=== PATIENT | male | born 1970 | race Caucasian/White ===

== ENCOUNTER → 2022-08-06 | Outpatient (CLI) | payer BC, SELFPAY ==
[2022-08-06] VITALS (10 sets, daily range): BP systolic 53–113; BP diastolic 10–72; PULSE 76–94; RESP 14–19; TEMP 36.8; O2SAT 98–100; BMI 20.9
--- NOTE | 2022-08-06 | BMB_PTH ---
PATIENT: MALDONADO HOGUE LOC: CT U#:[id number] AGE/SX: 51/M ROOM: RE08/06/[address]: Dr. Rafat Thapa MD : 1970 BED: DIS: 08/06/2022 SPEC #: [id number] RECD: 08/06/22 10:40 STATUS: LEIGH ANN REVirgilio #: [id number] QASIM: 08/06/22 00:[address]: Rafat Thapa DEPT: BONE MARROW RECD BY: Adriana Strong ENTERED: 08/06/22 10:40 SP TYPE: BMB CHARLI DR: Anu House, METHODS ANALYST-C Tissues: A - Bone marrow, NOS B - Bone marrow, NOS C - Bone marrow, NOS Procedures: Bone Marrow Aspiration Bone Marrow Core Biopsy Iron Stain Bone Marrow HEADER OPERATION: Bone marrow biopsy and aspiration PRE-OP DIAGNOSIS: Pancytopenia TISSUE SUBMITTED: A - Core, B - Clot, C - Smears, and send outs (flow, cytogenetics and FISH) BONE MARROW DIAGNOSIS Bone marrow core, clot and aspirate smears: 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 See comment. SJ:lia 08/08/2022 COMMENT A & B. Please also refer to Immunohistochemistry report ([id number]). Flow cytometry studies from [facility] show acute myeloid leukemia (non-APL). Leukemia-associated immunophenotype (LAIP): blasts show aberrant expression of CD34 (negative), CD33 (bright) and HLADR (partially negative). Blasts (30%) are positive for CD117, HLA-DR (partial expression), CD11c (dim), CD13, CD33 (bright expression) and CD38. The complete flow cytometry report is viewable in patient?s EMR. This case is discussed with Dr. Thapa on 08/08/2022. Case has been reviewed in consultation with Dr. Olivo who concurs with the above diagnosis. IDC:AM BONE MARROW STUDY Slides are reviewed. CBC DATE: 08/06/22 WBC 5.1; RBC 3.01; HGB 9.5; HCT 28.6; MCV 95.0; RDW 13.7; PLTS 55,000 SEGS 28.6%; LYMPHS 52.0%; MONOS 15.6%; EOS 0.6%; BASOS 0.6%, IG 2.6% PERIPHERAL SMEAR: Submitted. RBC: Macrocytic anemia. Nucleated RBCs are noted. Polychromasia 1+, Anisocytosis 1+, target cells 1+, ovalocytes and helmet cells and fragmented RBCs rare. WBC: Neutropenia. A few immature cells consistent with blasts are noted. The WBC count is compatible to as reported above. PLTS: Markedly decreased. BONE MARROW ASPIRATE DIFFERENTIAL: 200 cell count. Blasts % (normal 0-2): 40 Promyelocytes % (normal 1-5): 5 Myelocytes and metamyelocytes % (normal 17-41): 4 Bands and Segs % (normal 15-32): 0 Eos % (normal 1-6): 7 Basos % (normal 0-1): 0 Monocytes % (normal 0-4): 16 Erythroid Precursors % (normal 17-35): 21 Lymphocytes % (normal 7-13): 7 Plasma Cells % (normal 0-2): 0 ASPIRATE FINDINGS: Site: Not specified Paucispicular, Cellular M/E ratio: 0.4 (Normal 1.5-4.0) Megakaryocytes: Present and normal morphology. Erythropoiesis: Normoblastic. Granulopoiesis: Marled left shift. Bands and segmented neutrophils are not seen. Numerous immature cells consistent with blasts are noted. A few eosinophils are noted. CORE BIOPSY FINDINGS: Site: Not specified Adequacy: Adequate Cellularity: 95-100% M/E ratio: See comment below. Megakaryocytes: Present and adequate in number. Bony trabeculae: Not seen. Granulomas: Absent. Lymphoid aggregate: Absent. Atypical infiltrate: Present. Comment: Marked increased number of immature cells consistent with blasts are noted. Mature neutrophils are not seen. Please also refer to immunohistochemistry report ([id number]). ASPIRATE CLOT FINDINGS: Site: Not specified Marrow particles: Numerous Cellularity: 95-100% M/E ratio: See comment below. Megakaryocytes: Present and adequate in number. Granulomas: Absent. Lymphoid aggregates: Absent. Atypical infiltrates: Present. Comment: Marked increased number of immature cells consistent with blasts are noted. Mature neutrophils are not seen. Please also refer to immunohistochemistry report ([id number]). SPECIAL STAINS WITH MATCHED CONTROLS: Iron: Traces. Atypical or ring sideroblasts are not seen. Reticulin: Mild increase of reticulin fibers is noted. PAS: Highlights myeloid cells and megakaryocytes. BONE MARROW GROSS A - Received is a container labeled with the patient's name and designated bone marrow. The specimen consists of a scant amount of soft tissue. The specimen is totally submitted for cell block preparation in one cassette. B - Received labeled with the patient's name and designated bone marrow is a specimen that consists of approximately 6 ml of bloody fluid that on filtration yields multiple minute fragments of blood clots measuring in aggregate 2.4 x 1.5 x 0.1 cm. The specimen is totally submitted in one cassette. C - Also received are 17 unstained and 1 peripheral stained slides. The unstained slides are submitted for appropriate staining. Also received is one green top tube which is sent to our reference lab for flow, cytogenetics and FISH. / SJ:rg 08/06/2022 TC:0 CPT: 40727, 83853, 05041 x2, 16034 x3 ADDENDUM ADDENDUM ADDENDUM ADDENDUM ADDENDUM ADDENDUM ADDENDUM ADDENDUM ADDENDUM ADDENDUM ADDENDUM ADDENDUM ADDENDUM ADDENDUM ADDENDUM ADDENDUM ADDENDUM ADDENDUM ADDENDUM ADDENDUM ADDENDUM ADDENDUM ADDENDUM ADDENDUM ADDENDUM ADDENDUM ADDENDUM ADDENDUM ADDENDUM ADDENDUM ADDENDUM ADDENDUM ADDENDUM ADDENDUM ADDENDUM ADDENDUM ADDENDUM ADDENDUM ADDENDUM ADDENDUM 08/14/2022 10:45 ADDENDUM 08/14/2022 10:45 ADDENDUM 08/14/2022 10:45 ADDENDUM 08/14/2022 10:45 ADDENDUM 08/14/2022 10:45 CYTOGENETICS REPORT FROM [facility] INTERPRETATION: A normal male chromosome complement was observed in twenty metaphases analyzed. 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 NGS may underestimate mutant:wild type allelic ratios, and orthogonal PCR testing has therefore been initiated for further characterization; subsequent report addendum with mutant:wild type allelic ratio to follow. PERTINENT NEGATIVE RESULTS: The following genes are NEGATIVE for clinically relevant mutations. Mutational hotspots and surrounding exonic regions were interrogated for DNA level point mutations and indels (fusions not assayed). ABL1, ANKRD26, ASXL1, ATRX, BCOR, BCORL1, BRAF, CALR, CBL, CCND2, CDKN2A, CEBPA, CSF3R, CUX1, DDX41, DNMT3A, ETNK1, ETV6, EZH2, FBXW7, GATA2, HRAS, IDH1, IDH2, JAK2, KDM6A, KIT, KMT2A, KRAS, MAP2K1, MPL, MYD88, NF1, NRAS, PDGFRA, PHF6, PTEN, PTPN11, RUNX1, SETBP1, SF3B1, SRSF2, STAG2, TET2, TP53, U2AF1, WT1, ZRSR2 FLUORESCENCE IN-SITU HYBRIDIZATION (FISH) FROM [facility] MDS-Related Diseases & Other INTERPRETATION: 1. No evidence of deletion of 5q or monosomy 5. 2. No evidence of monosomy 7 or deletion of 7q. 3. No evidence of trisomy 8 (+8). 4. No evidence of deletion of 20q12. 5. No evidence of BCR/ABL rearrangement. 6. No evidence of PML/KEITH gene rearrangement. 7. No evidence of RUNX1/FKAO0J0 [t(8;21)]. 8. No evidence of MLL gene locus 11q23 translocation. 9. No evidence of CBFB [inversion(16) or translocation t(16;16)] gene rearrangement. Please see complete report in e-chart or EMR
--- NOTE | 2022-08-06 | IMM_PTH ---
PATIENT: MALDONADO HOGUE LOC: CT U#:[id number] AGE/SX: 51/M ROOM: RE08/06/[address]: Dr. Rafat Thapa MD : 1970 BED: DIS: 08/06/2022 SPEC #: [id number] RECD: 08/07/22 13:12 STATUS: LEIGH ANN REQ #: [id number] QASIM: 08/06/22 00:[address]: Rafat Thapa DEPT: IMMUNOHISTOCHEMISTRY RECD BY: Yahaira Olivares ENTERED: 08/07/22 13:13 SP TYPE: IMMUNO OTHR DR: Anu House, PRINTING PRESS MACHINIST-C Tissues: A - Bone marrow of iliac crest B - Bone marrow of iliac crest Procedures: CD45 (add) CD34 (initial) PHYSICIAN & INSTITUTION [place] [id number] SPECIMEN INFORMATION: Tissue Source: A ? Bone marrow core, B ? Bone marrow clot Clinical Info: Pancytopenia Specimen Number: [id number] A & B CPT code: 96471 x2, 14587 x2 METHODOLOGY: Deparaffinized sections of prefer/formalin-fixed tissue or PAP/DQ stained slides are incubated with monoclonal/polyclonal antibodies/oligonucleotide probes. Localization is made via biotin free immunoperoxidase method. Appropriate controls are performed and reacted as expected. Results on target cell population are indicated in the following table: RESULTS: ANTIBODY / CLONE RESULT Block A CD34 (QBEnd-10) negative CD45 (RP2/18) positive Block B CD34 (QBEnd-10) negative CD45 (RP2/18) positive These tests were developed and their performance characteristics determined by [facility]. They may not have been cleared or approved by the U.S. Food and Drug Administration. The FDA has determined that such clearance or approval is not necessary. The above immunohistochemical/dualISH markers are ordered and reviewed by the Pathologist. INTERPRETATION: A. Bone marrow core: Increased number of CD34 negative blasts are noted consistent with acute leukemia. B. Bone marrow clot: Increased number of CD34 negative blasts are noted consistent with acute leukemia. SJ:lia 08/08/2022 Case has been reviewed in consultation with Dr. Olivo who concurs with the above diagnosis. IDC:OPAL
--- NOTE | 2022-08-06 08:51 | CT_ITS ---
PROCEDURE: CT GUIDED bone marrow biopsy and bone marrow aspiration DATE: August 06, 2022 INDICATION: Male, 51 years old. Pancytopenia. PHYSICIAN: Alexander Nova M.D. RADIATION DOSAGE (If Supplied By Facility): CTDIvol = ( 14.5 ) mGy, DLP = ( 245.83 ) mGycm. Individualized dose optimization techniques were utilized. PROCEDURE: The risks, benefits, and alternatives to the procedure were explained to the patient. The specific risk of hemorrhage requiring further treatment or intervention was detailed and accepted. Follow-up instructions were discussed with the patient as well. Written informed consent was obtained. The patient was brought into the CT suite and placed in the prone position. . An appropriate entry site was identified. The overlying skin was prepped and draped in the usual sterile fashion. 1% lidocaine was administered subcutaneously for local anesthesia. Conscious sedation was performed. The patient received 2 mg of Versed and 50 mcg of fentanyl intravenously. Conscious sedation was started at 9:54 AM and terminated at 10:15 AM. The patient was independently monitored by the department nurse. Under CT guidance, a bone marrow biopsy and aspiration of the posterior right iliac bone were performed The specimens were then placed in the appropriate fluid and transported to the laboratory for analysis. Hemostasis was obtained. The patient tolerated the procedure well without immediate complications. CT/Biopsy/Inj or Needle Placement IMPRESSION: Successful CT guided bone marrow biopsy and aspiration of the posterior right iliac bone, as described above. Conscious sedation protocol was followed. Electronically Signed: Alexander Nova MD at 10:31 EST ,
[2022-08-06 08:57] LABS: Absolute Lymphocyte Count 2.64 X10^3/uL (0.83-4.51); Absolute Neutrophil Count 1.5 X10^3/uL (2.0-7.7); Basophil# 0.03 X10^3/uL; Basophil% 0.6 % (0-1); Eosinophil# 0.03 X10^3/uL; Eosinophils% 0.6 % (0-5); Hematocrit 28.6 % (40-54); Hemoglobin 9.5 g/dL (13.0-16.5); Lymphocyte # 2.64 X10^3/ul (0.83-4.51); Mean Corp Hgb Conc 33.2 g/dL (32-36); Mean Corpuscular Hgb 31.6 pg (27.0-32.0); Monocyte# 0.79 X10^3/uL; Monocyte% 15.6 % (0-10); NRBC Flagged by Analyzer 7.9 % (0-5); Neutrophil # 1.46 X10^3/uL (2.7-7.7); Neutrophil % 28.6 % (47-70); POSITIVE COUNT YES; POSITIVE MORPHOLOGY YES; Platelet Count 55 K/mm3 (150-450); RBC Distribution Width CV 13.7 % (11.6-14.6); RBC Distribution Width SD 47.5 fl (35.1-43.9); Red Blood Count 3.01 M/mm3 (4.6-6.2); White Blood Count 5.1 K/mm3 (4.4-11.0)
[2022-08-06 08:58] LABS: Differential Indicated SCAN CRITERIA MET
[2022-08-06 09:04] LABS: International Normalized Ratio 1.1; Partial Thromboplast Time 27.6 Seconds (24.1-36.2); Prothrombin Time (Protime)PT. 14.4 SECONDS (11.7-14.9)
[2022-08-06 09:22] LABS: Atypical Lymphocyte 1+ %
[2022-08-06 09:23] LABS: Differential Comment SCANNED
[2022-08-06] MEDS: 0.9% Saline Lock 10 ML Syringe IV (09:26)
[2022-08-06] MEDS: Midazolam 2 MG/2 ML Syringe IV (09:54)
[2022-08-06] MEDS: fentaNYL 100 MCG/2 ML Ampul IV (09:55)
[2022-08-06] MEDS: Lidocaine 2% (20 ml mdv) 20 ML Vial INFILT (10:00)
[2022-08-07 11:39] LABS: Pathologist Review Reviewed
== END | disposition home or self-care (01) ==
LOC: CT 08:40
PROVIDERS: PCP Nurse Practitioner Family; Visit Provider Internal Medicine Medical Oncology
DX: D61.818 Other pancytopenia (principal); N50.89 Other specified disorders of the male genital organs; F17.210 Nicotine dependence, cigarettes, uncomplicated; Z79.899 Other long term (current) drug therapy; E61.1 Iron deficiency
CPT/HCPCS: 38222; 36415; 77012; 85025; 85610; 85730; 88305; 88311; 88313; 88341; 88342; 99156; J7050; A4216

== ENCOUNTER 2022-09-23 10:53 | Outpatient (CLI) | payer BC, SELFPAY ==
[2022-09-23 11:28] LABS: Absolute Lymphocyte Count 0.64 X10^3/uL (0.83-4.51); Absolute Neutrophil Count 1.2 X10^3/uL (2.0-7.7); Hematocrit 33.3 % (40-54); Hemoglobin 10.8 g/dL (13.0-16.5); Lymphocyte # 0.64 X10^3/ul (0.83-4.51); Lymphocyte % 31.4 % (19-41); Mean Corp Hgb Conc 32.4 g/dL (32-36); Mean Corpuscular Hgb 29.8 pg (27.0-32.0); Mean Platelet Vol. 9.5 fl (6.2-12.0); Monocyte# 0.16 X10^3/uL; Monocyte% 7.8 % (0-10); NRBC Flagged by Analyzer 0 % (0-5); Neutrophil # 1.23 X10^3/uL (2.7-7.7); Neutrophil % 60.3 % (47-70); Platelet Count 177 K/mm3 (150-450); RBC Distribution Width SD 44.3 fl (35.1-43.9); Red Blood Count 3.62 M/mm3 (4.6-6.2)
[2022-09-23 11:43] LABS: AST(SGOT) 48 U/L (15-37); Alanine Aminotransfer ALT/SGPT 153 U/L (16-61); Albumin, Serum 2.5 g/dL (3.2-5.0); Alkaline Phosphatase 129 U/L (45-117); Anion Gap 2 (5-15); BUN 7 mg/dL (7-18); BUN/Creat Ratio 9.8 RATIO (10-20); Bilirubin, Direct 0.13 mg/dL (0.00-0.30); Calcium,Total 8.4 mg/dL (8.5-10.1); Chloride 111 mmol/L (98-107); Creatinine, Serum 0.71 mg/dL (0.70-1.30); EST Glomerular Filtration Rate 123 mL/min (>60); Est Glom Filt Rate - Afr Amer 148 mL/min (>60); Globulin 3.9 g/dL (2.2-4.2); Glucose 100 mg/dL (74-106); Potassium 3.9 mmol/L (3.5-5.1); Protein, Total 6.4 g/dL (6.4-8.2); Sodium Level 138 mmol/L (136-145)
[2022-09-23 19:22] LABS: Xtra Tube EP Lab EXTRA TUBE
== END 2022-09-23 10:54 | disposition home or self-care (01) ==
LOC: MEDOUTP 10:54
PROVIDERS: PCP Nurse Practitioner Family; Referring Provider Nurse Practitioner Adult Health; Visit Provider Nurse Practitioner Adult Health
DX: Z45.2 Encounter for adjustment and management of vascular access device (principal); C92.00 Acute myeloblastic leukemia, not having achieved remission
CPT/HCPCS: 36592; 80048; 80076; 85025; A4216

== ENCOUNTER 2022-09-30 14:30 | Outpatient (CLI) | payer BC, SELFPAY ==
[2022-09-30 15:40] LABS: Absolute Lymphocyte Count 1.19 X10^3/uL (0.83-4.51); Absolute Neutrophil Count 1.6 X10^3/uL (2.0-7.7); Basophil# 0.03 X10^3/uL; Basophil% 0.7 % (0-1); Hematocrit 35.3 % (40-54); Hemoglobin 11.2 g/dL (13.0-16.5); Lymphocyte # 1.19 X10^3/ul (0.83-4.51); Lymphocyte % 29.4 % (19-41); Mean Corp Hgb Conc 31.7 g/dL (32-36); Mean Corpuscular Hgb 29.7 pg (27.0-32.0); Mean Corpuscular Volume 93.6 fL (80-94); Mean Platelet Vol. 8.6 fl (6.2-12.0); Monocyte% 29.6 % (0-10); NRBC Flagged by Analyzer 0 % (0-5); Neutrophil # 1.62 X10^3/uL (2.7-7.7); Neutrophil % 40.1 % (47-70); Platelet Count 383 K/mm3 (150-450); RBC Distribution Width SD 46.3 fl (35.1-43.9); Red Blood Count 3.77 M/mm3 (4.6-6.2); White Blood Count 4.1 K/mm3 (4.4-11.0)
[2022-09-30 16:08] LABS: AST(SGOT) 48 U/L (15-37); Alanine Aminotransfer ALT/SGPT 116 U/L (16-61); Alkaline Phosphatase 125 U/L (45-117); Anion Gap 8 (5-15); BUN 7 mg/dL (7-18); BUN/Creat Ratio 9.1 RATIO (10-20); Bilirubin, Direct 0.12 mg/dL (0.00-0.30); Calcium,Total 8.5 mg/dL (8.5-10.1); Chloride 108 mmol/L (98-107); Creatinine, Serum 0.77 mg/dL (0.70-1.30); EST Glomerular Filtration Rate 112 mL/min (>60); Est Glom Filt Rate - Afr Amer 136 mL/min (>60); Globulin 4.1 g/dL (2.2-4.2); Glucose 89 mg/dL (74-106); Potassium 3.9 mmol/L (3.5-5.1); Protein, Total 7.1 g/dL (6.4-8.2); Sodium Level 141 mmol/L (136-145)
== END 2022-09-30 14:31 | disposition home or self-care (01) ==
LOC: MEDOUTP 14:30
PROVIDERS: PCP Nurse Practitioner Family; Referring Provider Nurse Practitioner Adult Health; Visit Provider Nurse Practitioner Adult Health
DX: C92.00 Acute myeloblastic leukemia, not having achieved remission (principal)
CPT/HCPCS: 36415; 80048; 80076; 85025; A4216

== ENCOUNTER 2022-10-14 14:37 | Outpatient (CLI) | payer BC, SELFPAY ==
[2022-10-14 15:11] LABS: Absolute Lymphocyte Count 1.01 X10^3/uL (0.83-4.51); Absolute Neutrophil Count 3.1 X10^3/uL (2.0-7.7); Basophil# 0.01 X10^3/uL; Basophil% 0.2 % (0-1); Hematocrit 35.5 % (40-54); Hemoglobin 11.7 g/dL (13.0-16.5); Lymphocyte # 1.01 X10^3/ul (0.83-4.51); Lymphocyte % 24.3 % (19-41); Monocyte# 0.02 X10^3/uL; Monocyte% 0.5 % (0-10); NRBC Flagged by Analyzer 0 % (0-5); Neutrophil # 3.09 X10^3/uL (2.7-7.7); Neutrophil % 74.5 % (47-70); POSITIVE COUNT YES; Platelet Count 84 K/mm3 (150-450); RBC Distribution Width CV 14.5 % (11.6-14.6); White Blood Count 4.2 K/mm3 (4.4-11.0)
[2022-10-14 15:12] LABS: Differential Indicated SCAN CRITERIA MET
[2022-10-14 15:25] LABS: AST(SGOT) 29 U/L (15-37); Alanine Aminotransfer ALT/SGPT 95 U/L (16-61); Albumin, Serum 3.4 g/dL (3.2-5.0); Alkaline Phosphatase 88 U/L (45-117); Anion Gap 10 (5-15); BUN 17 mg/dL (7-18); BUN/Creat Ratio 19.8 RATIO (10-20); Bilirubin, Direct 0.24 mg/dL (0.00-0.30); Calcium,Total 8.5 mg/dL (8.5-10.1); Chloride 103 mmol/L (98-107); Creatinine, Serum 0.86 mg/dL (0.70-1.30); EST Glomerular Filtration Rate 99 mL/min (>60); Est Glom Filt Rate - Afr Amer 119 mL/min (>60); Globulin 3.3 g/dL (2.2-4.2); Glucose 100 mg/dL (74-106); Potassium 3.7 mmol/L (3.5-5.1); Protein, Total 6.7 g/dL (6.4-8.2); Sodium Level 139 mmol/L (136-145)
[2022-10-14 15:44] LABS: Differential Comment SCANNED
== END 2022-10-14 14:38 | disposition home or self-care (01) ==
LOC: MEDOUTP 14:37
PROVIDERS: PCP Nurse Practitioner Family; Referring Provider Nurse Practitioner Adult Health; Visit Provider Nurse Practitioner Adult Health
DX: C92.00 Acute myeloblastic leukemia, not having achieved remission (principal)
CPT/HCPCS: 36592; 80048; 80076; 85025; A4216

== ENCOUNTER 2022-10-17 14:20 | Outpatient (CLI) | payer BC, SELFPAY ==
[2022-10-17 14:47] LABS: Absolute Lymphocyte Count 0.99 X10^3/uL (0.83-4.51); Basophil# 0.02 X10^3/uL; Basophil% 0.6 % (0-1); Eosinophil# 0.01 X10^3/uL; Eosinophils% 0.3 % (0-5); Hematocrit 34.4 % (40-54); Hemoglobin 11.1 g/dL (13.0-16.5); Lymphocyte # 0.99 X10^3/ul (0.83-4.51); Lymphocyte % 31.8 % (19-41); Mean Corp Hgb Conc 32.3 g/dL (32-36); Mean Corpuscular Hgb 29.8 pg (27.0-32.0); Mean Corpuscular Volume 92.5 fL (80-94); Mean Platelet Vol. 8.4 fl (6.2-12.0); Monocyte# 0.03 X10^3/uL; NRBC Flagged by Analyzer 0 % (0-5); Neutrophil # 2.04 X10^3/uL (2.7-7.7); Neutrophil % 65.7 % (47-70); POSITIVE COUNT YES; POSITIVE MORPHOLOGY YES; RBC Distribution Width CV 14.4 % (11.6-14.6); Red Blood Count 3.72 M/mm3 (4.6-6.2); White Blood Count 3.1 K/mm3 (4.4-11.0)
[2022-10-17 15:00] LABS: Platelet Count 5 K/mm3 (150-450)
[2022-10-17 15:01] LABS: Differential Indicated SCAN CRITERIA MET
[2022-10-17 15:04] LABS: AST(SGOT) 28 U/L (15-37); Alanine Aminotransfer ALT/SGPT 104 U/L (16-61); Albumin, Serum 3.4 g/dL (3.2-5.0); Alkaline Phosphatase 97 U/L (45-117); Bilirubin, Direct 0.35 mg/dL (0.00-0.30); Globulin 3.3 g/dL (2.2-4.2); Protein, Total 6.7 g/dL (6.4-8.2)
[2022-10-17 15:21] LABS: Anisocytosis 1+; Platelet Estimate MKD DEC (ADEQ)
[2022-10-18 10:30] LABS: Pathologist Review Reviewed
== END 2022-10-17 14:21 | disposition home or self-care (01) ==
LOC: MEDOUTP 14:20
PROVIDERS: PCP Nurse Practitioner Family; Referring Provider Nurse Practitioner Adult Health; Visit Provider Nurse Practitioner Adult Health
DX: C92.00 Acute myeloblastic leukemia, not having achieved remission (principal)
CPT/HCPCS: 36592; 80076; 85025; A4216

== ENCOUNTER 2022-10-21 09:21 | Outpatient (CLI) | payer BC, SELFPAY ==
[2022-10-21 09:51] LABS: Absolute Lymphocyte Count 0.84 X10^3/uL (0.83-4.51); Eosinophil# 0.01 X10^3/uL; Eosinophils% 1.1 % (0-5); Hematocrit 29.5 % (40-54); Hemoglobin 9.8 g/dL (13.0-16.5); Lymphocyte # 0.84 X10^3/ul (0.83-4.51); Lymphocyte % 92.3 % (19-41); Mean Corp Hgb Conc 33.2 g/dL (32-36); Mean Corpuscular Hgb 30.3 pg (27.0-32.0); Mean Corpuscular Volume 91.3 fL (80-94); Monocyte# 0.03 X10^3/uL; Monocyte% 3.3 % (0-10); NRBC Flagged by Analyzer 0 % (0-5); Neutrophil # 0.03 X10^3/uL (2.7-7.7); Neutrophil % 3.3 % (47-70); POSITIVE COUNT YES; POSITIVE DIFFERENTIAL YES; POSITIVE MORPHOLOGY YES; RBC Distribution Width SD 47.3 fl (35.1-43.9); Red Blood Count 3.23 M/mm3 (4.6-6.2)
[2022-10-21 09:59] LABS: Differential Indicated SCAN CRITERIA MET; Platelet Count 4 K/mm3 (150-450); White Blood Count 0.9 K/mm3 (4.4-11.0)
[2022-10-21 10:00] LABS: AST(SGOT) 24 U/L (15-37); Alanine Aminotransfer ALT/SGPT 93 U/L (16-61); Albumin, Serum 3.2 g/dL (3.2-5.0); Alkaline Phosphatase 93 U/L (45-117); Anion Gap 9 (5-15); BUN 11 mg/dL (7-18); BUN/Creat Ratio 13.2 RATIO (10-20); Bilirubin, Direct 0.19 mg/dL (0.00-0.30); Calcium,Total 8.8 mg/dL (8.5-10.1); Chloride 103 mmol/L (98-107); Creatinine, Serum 0.83 mg/dL (0.70-1.30); EST Glomerular Filtration Rate 102 mL/min (>60); Est Glom Filt Rate - Afr Amer 124 mL/min (>60); Globulin 3.3 g/dL (2.2-4.2); Glucose 105 mg/dL (74-106); Potassium 3.8 mmol/L (3.5-5.1); Protein, Total 6.5 g/dL (6.4-8.2); Sodium Level 136 mmol/L (136-145)
[2022-10-21 10:45] LABS: Differential Comment SCANNED
[2022-10-21 17:43] LABS: Xtra Tube EP Lab EXTRA TUBE
[2022-10-22 12:48] LABS: Pathologist Review Reviewed
== END 2022-10-21 09:22 | disposition home or self-care (01) ==
LOC: MEDOUTP 09:21
PROVIDERS: PCP Nurse Practitioner Family; Referring Provider Nurse Practitioner Adult Health; Visit Provider Nurse Practitioner Adult Health
DX: C92.00 Acute myeloblastic leukemia, not having achieved remission (principal)
CPT/HCPCS: 36592; 80048; 80076; 85025; 86900; 86901; A4216

== ENCOUNTER 2022-10-22 07:56 | Outpatient (CLI) | payer BC, SELFPAY ==
[2022-10-22 08:05] VITALS: BP 98/63; PULSE 102; RESP 16; TEMP 36.1; O2SAT 98
[2022-10-22 08:31] VITALS: BP 98/62; PULSE 100; RESP 14; TEMP 35.9; O2SAT 99
[2022-10-22 09:13] LABS: POSITIVE COUNT YES
[2022-10-22 09:20] LABS: Differential Indicated SCAN CRITERIA MET
[2022-10-22 09:56] LABS: Platelet Count 30 K/mm3 (150-450)
[2022-10-22 17:09] LABS: Xtra Tube EP Lab EXTRA TUBE
[2022-10-23 12:04] LABS: Pathologist Review Reviewed
== END 2022-10-22 07:57 | disposition home or self-care (01) ==
LOC: MEDOUTP 07:56
PROVIDERS: PCP Nurse Practitioner Family; Referring Provider Nurse Practitioner Adult Health; Visit Provider Nurse Practitioner Adult Health
DX: C92.00 Acute myeloblastic leukemia, not having achieved remission (principal)
CPT/HCPCS: 36430; 36592; 85049; 86900; 86901; 86965; J7040; P9035; A4216

== ENCOUNTER 2022-10-24 14:28 | Outpatient (CLI) | payer BC, SELFPAY ==
[2022-10-24 14:50] LABS: Hematocrit 26.5 % (40-54); Mean Corpuscular Hgb 30.4 pg (27.0-32.0); Mean Corpuscular Volume 89.5 fL (80-94); Mean Platelet Vol. 11.1 fl (6.2-12.0); POSITIVE COUNT YES; POSITIVE DIFFERENTIAL YES; POSITIVE MORPHOLOGY YES; Platelet Count 38 K/mm3 (150-450); RBC Distribution Width CV 14.5 % (11.6-14.6); RBC Distribution Width SD 46.5 fl (35.1-43.9); Red Blood Count 2.96 M/mm3 (4.6-6.2); White Blood Count 18.1 K/mm3 (4.4-11.0)
[2022-10-24 14:52] LABS: Differential Indicated MANUAL DIFF
[2022-10-24 15:04] LABS: AST(SGOT) 23 U/L (15-37); Alanine Aminotransfer ALT/SGPT 65 U/L (16-61); Albumin, Serum 3.2 g/dL (3.2-5.0); Alkaline Phosphatase 115 U/L (45-117); Globulin 3.2 g/dL (2.2-4.2); Protein, Total 6.4 g/dL (6.4-8.2)
[2022-10-24 15:38] LABS: Total Cells Counted 100 (MANUAL DIFF)
[2022-10-25 12:56] LABS: Metamyelocyte 5 % (0-1); Myelocyte 1 % (0-0); Neutrophil-Band 3 % (0-5); Neutrophil-Segmented 49 % (47-70); Promyelocyte 2 % (0-0)
[2022-10-25 12:57] LABS: Blast 4 % (0-0); Eosinophil 2 % (0-5); Lymphocyte 15 % (19-41); Monocyte 19 % (0-10)
[2022-10-25 12:58] LABS: Absolute Neutrophil Count 9.4 X10^3/uL (2.0-7.7)
[2022-10-29 09:04] LABS: Pathologist Review Reviewed
== END 2022-10-24 14:29 | disposition home or self-care (01) ==
LOC: MEDOUTP 14:28
PROVIDERS: PCP Nurse Practitioner Family; Referring Provider Nurse Practitioner Adult Health; Visit Provider Nurse Practitioner Adult Health
DX: C92.00 Acute myeloblastic leukemia, not having achieved remission (principal)
CPT/HCPCS: 36592; 80076; 85025; A4216

== ENCOUNTER 2022-10-29 07:57 | Outpatient (CLI) | payer BC, SELFPAY ==
[2022-10-29 08:21] LABS: Absolute Lymphocyte Count 1.01 X10^3/uL (0.83-4.51); Absolute Neutrophil Count 7.2 X10^3/uL (2.0-7.7); Basophil# 0.01 X10^3/uL; Basophil% 0.1 % (0-1); Eosinophil# 0.01 X10^3/uL; Eosinophils% 0.1 % (0-5); Hematocrit 26.5 % (40-54); Hemoglobin 8.7 g/dL (13.0-16.5); Lymphocyte # 1.01 X10^3/ul (0.83-4.51); Lymphocyte % 9.4 % (19-41); Mean Corp Hgb Conc 32.8 g/dL (32-36); Mean Corpuscular Hgb 29.7 pg (27.0-32.0); Mean Corpuscular Volume 90.4 fL (80-94); Mean Platelet Vol. 9.8 fl (6.2-12.0); Monocyte% 22.3 % (0-10); NRBC Flagged by Analyzer 0 % (0-5); Neutrophil # 7.16 X10^3/uL (2.7-7.7); Neutrophil % 66.6 % (47-70); POSITIVE DIFFERENTIAL YES; Platelet Count 268 K/mm3 (150-450); RBC Distribution Width CV 14.8 % (11.6-14.6); Red Blood Count 2.93 M/mm3 (4.6-6.2); White Blood Count 10.8 K/mm3 (4.4-11.0)
[2022-10-29 08:30] LABS: Differential Indicated SCAN CRITERIA MET
[2022-10-29 08:38] LABS: AST(SGOT) 13 U/L (15-37); Alanine Aminotransfer ALT/SGPT 42 U/L (16-61); Albumin, Serum 2.8 g/dL (3.2-5.0); Alkaline Phosphatase 103 U/L (45-117); Anion Gap 7 (5-15); BUN 8 mg/dL (7-18); BUN/Creat Ratio 8.3 RATIO (10-20); Bilirubin, Direct 0.12 mg/dL (0.00-0.30); Calcium,Total 8.9 mg/dL (8.5-10.1); Chloride 109 mmol/L (98-107); Creatinine, Serum 0.96 mg/dL (0.70-1.30); EST Glomerular Filtration Rate 87 mL/min (>60); Est Glom Filt Rate - Afr Amer 105 mL/min (>60); Globulin 3.8 g/dL (2.2-4.2); Glucose 109 mg/dL (74-106); Potassium 3.5 mmol/L (3.5-5.1); Protein, Total 6.6 g/dL (6.4-8.2); Sodium Level 142 mmol/L (136-145)
[2022-10-29 08:47] LABS: Differential Comment SCANNED
[2022-10-29 16:19] LABS: Xtra Tube EP Lab EXTRA TUBE
== END 2022-10-29 07:58 | disposition home or self-care (01) ==
LOC: MEDOUTP 07:57
PROVIDERS: PCP Nurse Practitioner Family; Referring Provider Nurse Practitioner Adult Health; Visit Provider Nurse Practitioner Adult Health
DX: C92.00 Acute myeloblastic leukemia, not having achieved remission (principal)
CPT/HCPCS: 36592; 80048; 80076; 85025; A4216

== ENCOUNTER 2022-11-01 08:51 | Outpatient (CLI) | payer BC, SELFPAY | END 2022-11-01 08:52 | disposition home or self-care (01) | LOC: MEDOUTP 08:52 | PROVIDERS: PCP Nurse Practitioner Family; Referring Provider Nurse Practitioner Adult Health; Visit Provider Nurse Practitioner Adult Health | DX: C92.00 Acute myeloblastic leukemia, not having achieved remission (principal) | CPT/HCPCS: 96523 ==

== ENCOUNTER 2022-11-12 12:49 | Outpatient (CLI) | payer BC, SELFPAY ==
[2022-11-12 13:23] LABS: Hematocrit 27.6 % (40-54); Hemoglobin 8.9 g/dL (13.0-16.5); Mean Corp Hgb Conc 32.2 g/dL (32-36); Mean Corpuscular Hgb 29.7 pg (27.0-32.0); Mean Platelet Vol. 9.2 fl (6.2-12.0); POSITIVE COUNT YES; POSITIVE MORPHOLOGY YES; Platelet Count 96 K/mm3 (150-450); RBC Distribution Width CV 15.7 % (11.6-14.6); RBC Distribution Width SD 50.8 fl (35.1-43.9); White Blood Count 5.4 K/mm3 (4.4-11.0)
[2022-11-12 13:26] LABS: Differential Indicated MANUAL DIFF
[2022-11-12 13:36] LABS: AST(SGOT) 6 U/L (15-37); Alanine Aminotransfer ALT/SGPT 35 U/L (16-61); Alkaline Phosphatase 87 U/L (45-117); Anion Gap 5 (5-15); BUN 18 mg/dL (7-18); BUN/Creat Ratio 19.9 RATIO (10-20); Bilirubin, Direct 0.16 mg/dL (0.00-0.30); Calcium,Total 8.8 mg/dL (8.5-10.1); Chloride 109 mmol/L (98-107); Creatinine, Serum 0.91 mg/dL (0.70-1.30); EST Glomerular Filtration Rate 93 mL/min (>60); Est Glom Filt Rate - Afr Amer 112 mL/min (>60); Globulin 3.3 g/dL (2.2-4.2); Glucose 116 mg/dL (74-106); Potassium 3.8 mmol/L (3.5-5.1); Protein, Total 6.3 g/dL (6.4-8.2); Sodium Level 140 mmol/L (136-145)
[2022-11-12 13:42] LABS: Lymphocyte 15 % (19-41); Metamyelocyte 2 % (0-1); Monocyte 2 % (0-10); Neutrophil-Band 5 % (0-5); Neutrophil-Segmented 76 % (47-70); Total Cells Counted 100 (MANUAL DIFF)
[2022-11-12 13:43] LABS: Absolute Neutrophil Count 4.4 X10^3/uL (2.0-7.7); Neutrophil # 4.45 X10^3/uL (2.7-7.7)
[2022-11-12 13:44] LABS: Red Cell Morphology NORM C+C NORMAL (NORM C&C)
[2022-11-12 13:45] LABS: Platelet Estimate SLT DEC (ADEQ)
[2022-11-13 12:32] LABS: Pathologist Review Reviewed
== END 2022-11-12 12:50 | disposition home or self-care (01) ==
LOC: MEDOUTP 12:49
PROVIDERS: PCP Nurse Practitioner Family; Referring Provider Nurse Practitioner Adult Health; Visit Provider Nurse Practitioner Adult Health
DX: C92.00 Acute myeloblastic leukemia, not having achieved remission (principal)
CPT/HCPCS: 36592; 80048; 80076; 85025; A4216

== ENCOUNTER 2022-11-15 12:01 | Outpatient (CLI) | payer BC, SELFPAY ==
[2022-11-15 13:09] LABS: Absolute Lymphocyte Count 0.78 X10^3/uL (0.83-4.51); Absolute Neutrophil Count 0.1 X10^3/uL (2.0-7.7); Basophil# 0.01 X10^3/uL; Basophil% 1.1 % (0-1); Hematocrit 25.1 % (40-54); Hemoglobin 7.9 g/dL (13.0-16.5); Lymphocyte # 0.78 X10^3/ul (0.83-4.51); Lymphocyte % 85.7 % (19-41); Mean Corp Hgb Conc 31.5 g/dL (32-36); Mean Corpuscular Hgb 28.8 pg (27.0-32.0); Mean Corpuscular Volume 91.6 fL (80-94); Monocyte# 0.01 X10^3/uL; Monocyte% 1.1 % (0-10); NRBC Flagged by Analyzer 0 % (0-5); Neutrophil # 0.11 X10^3/uL (2.7-7.7); Neutrophil % 12.1 % (47-70); POSITIVE COUNT YES; POSITIVE DIFFERENTIAL YES; POSITIVE MORPHOLOGY YES; Platelet Count 5 K/mm3 (150-450); RBC Distribution Width CV 15.5 % (11.6-14.6); Red Blood Count 2.74 M/mm3 (4.6-6.2)
[2022-11-15 13:17] LABS: AST(SGOT) 16 U/L (15-37); Alanine Aminotransfer ALT/SGPT 49 U/L (16-61); Albumin, Serum 3.3 g/dL (3.2-5.0); Alkaline Phosphatase 92 U/L (45-117); Anion Gap 9 (5-15); BUN 12 mg/dL (7-18); BUN/Creat Ratio 12.8 RATIO (10-20); Calcium,Total 8.7 mg/dL (8.5-10.1); Chloride 108 mmol/L (98-107); Creatinine, Serum 0.93 mg/dL (0.70-1.30); EST Glomerular Filtration Rate 90 mL/min (>60); Est Glom Filt Rate - Afr Amer 108 mL/min (>60); Globulin 3.1 g/dL (2.2-4.2); Glucose 114 mg/dL (74-106); Potassium 3.7 mmol/L (3.5-5.1); Protein, Total 6.4 g/dL (6.4-8.2); Sodium Level 143 mmol/L (136-145)
[2022-11-15 13:25] LABS: Differential Indicated SCAN CRITERIA MET; White Blood Count 0.9 K/mm3 (4.4-11.0)
[2022-11-15 13:59] LABS: Differential Comment SCANNED; Platelet Estimate MKD DEC (ADEQ)
[2022-11-15 20:58] LABS: Xtra Tube EP Lab EXTRA TUBE
[2022-11-18 12:58] LABS: Pathologist Review Reviewed
== END 2022-11-15 12:02 | disposition home or self-care (01) ==
LOC: MEDOUTP 12:01
PROVIDERS: PCP Nurse Practitioner Family; Referring Provider Nurse Practitioner Adult Health; Visit Provider Nurse Practitioner Adult Health
DX: C92.00 Acute myeloblastic leukemia, not having achieved remission (principal)
CPT/HCPCS: 36592; 80048; 80076; 85025; 86900; 86901; A4216; C1788

== ENCOUNTER 2022-11-16 08:26 | Outpatient (CLI) | payer BC, SELFPAY ==
--- NOTE | 2022-11-16 08:38 | NURSING ---
[facility] oncology paged for direction on Hgb of 7.9 and pt symptomatic tired/weak and standing orders say to transfuse for Hgb under 8.0 but pt has not been screen/typed-(Saturnino paged per bliss press operator)
[2022-11-16 08:41] VITALS: BP 138/86; PULSE 89; RESP 20; TEMP 36.7; O2SAT 93
--- NOTE | 2022-11-16 09:19 | NURSING ---
pt weight 135#
[2022-11-16 09:27] VITALS: BP 105/78; PULSE 98; RESP 20; TEMP 37.1; O2SAT 100
[2022-11-16 09:42] VITALS: BP 112/74; PULSE 100; RESP 18; TEMP 36.7; O2SAT 100
[2022-11-16 09:46] VITALS: BMI 20.5
--- NOTE | 2022-11-16 10:35 | NURSING ---
PICC line RAC flushed w/20 ml Ns prior to procedure blood visible-platelets given, pt tolerated well-SNS .9 flushed 20 ml through PICC Line post infusion, pt refusing heparin flush- per [facility], pt is to have labs drawn outpt infusion on Friday-she felt the 7.9 Hgb from yesterdays labs did not need transfused today and they will recheck on Friday-pt voices understanding and states he will call office early am friday
== END 2022-11-16 10:40 | disposition home or self-care (01) ==
LOC: MEDOUTP 08:26 → MS3 08:28
PROVIDERS: PCP Nurse Practitioner Family; Referring Provider Nurse Practitioner Adult Health; Visit Provider Nurse Practitioner Adult Health
DX: C92.00 Acute myeloblastic leukemia, not having achieved remission (principal)
CPT/HCPCS: 36430; 86900; 86901; 86965; J7040; P9035

== ENCOUNTER 2022-11-18 10:15 | Outpatient (CLI) | payer BC, SELFPAY ==
[2022-11-18 10:51] LABS: Absolute Neutrophil Count 0.1 X10^3/uL (2.0-7.7); Eosinophil# 0.01 X10^3/uL; Hematocrit 21.4 % (40-54); Hemoglobin 7.2 g/dL (13.0-16.5); Lymphocyte % 82.5 % (19-41); Mean Corp Hgb Conc 33.6 g/dL (32-36); Mean Corpuscular Hgb 30.1 pg (27.0-32.0); Mean Corpuscular Volume 89.5 fL (80-94); Monocyte# 0.04 X10^3/uL; Monocyte% 4.1 % (0-10); NRBC Flagged by Analyzer 0 % (0-5); Neutrophil # 0.12 X10^3/uL (2.7-7.7); Neutrophil % 12.4 % (47-70); POSITIVE COUNT YES; POSITIVE DIFFERENTIAL YES; POSITIVE MORPHOLOGY YES; RBC Distribution Width SD 48.6 fl (35.1-43.9); Red Blood Count 2.39 M/mm3 (4.6-6.2)
[2022-11-18 10:56] LABS: Differential Indicated SCAN CRITERIA MET
[2022-11-18 11:02] LABS: AST(SGOT) 10 U/L (15-37); Alanine Aminotransfer ALT/SGPT 30 U/L (16-61); Albumin, Serum 3.1 g/dL (3.2-5.0); Alkaline Phosphatase 95 U/L (45-117); Anion Gap 6 (5-15); BUN 10 mg/dL (7-18); BUN/Creat Ratio 10.8 RATIO (10-20); Bilirubin, Direct 0.16 mg/dL (0.00-0.30); Chloride 108 mmol/L (98-107); Creatinine, Serum 0.92 mg/dL (0.70-1.30); EST Glomerular Filtration Rate 91 mL/min (>60); Est Glom Filt Rate - Afr Amer 110 mL/min (>60); Globulin 3.5 g/dL (2.2-4.2); Glucose 103 mg/dL (74-106); Potassium 3.7 mmol/L (3.5-5.1); Protein, Total 6.6 g/dL (6.4-8.2); Sodium Level 140 mmol/L (136-145)
[2022-11-18 11:18] LABS: Platelet Count 3 K/mm3 (150-450)
[2022-11-18 11:51] LABS: Platelet Estimate MKD DEC (ADEQ)
[2022-11-19 12:17] LABS: Pathologist Review Reviewed
== END 2022-11-18 10:16 | disposition home or self-care (01) ==
LOC: MEDOUTP 10:17
PROVIDERS: PCP Nurse Practitioner Family; Referring Provider Nurse Practitioner Adult Health; Visit Provider Nurse Practitioner Adult Health
DX: C92.00 Acute myeloblastic leukemia, not having achieved remission (principal)
CPT/HCPCS: 36592; 80048; 80076; 85025; 86850; 86900; 86901; 86920; 86922; A4216

== ENCOUNTER 2022-11-19 07:50 | Outpatient (CLI) | payer BC, SELFPAY ==
[2022-11-19 07:57] VITALS: BP 111/67; PULSE 110; RESP 16; TEMP 36.5; O2SAT 100
[2022-11-19 08:24] VITALS: BP 87/59; PULSE 100; RESP 14; TEMP 36.4; O2SAT 97
[2022-11-19 09:00] VITALS: BP 87/56; PULSE 95; RESP 16; TEMP 36.4; O2SAT 97
[2022-11-19 09:30] VITALS: BP 94/54; PULSE 92; RESP 16; TEMP 36.4
[2022-11-19 10:40] VITALS: BP 97/66; PULSE 90; RESP 16; TEMP 36.4; O2SAT 97
[2022-11-19 11:06] VITALS: BP 103/68; PULSE 87; RESP 16; TEMP 36.6; O2SAT 100
== END 2022-11-19 07:51 | disposition home or self-care (01) ==
LOC: MEDOUTP 07:51
PROVIDERS: PCP Nurse Practitioner Family; Referring Provider Nurse Practitioner Adult Health; Visit Provider Nurse Practitioner Adult Health
DX: C92.00 Acute myeloblastic leukemia, not having achieved remission (principal)
CPT/HCPCS: 36430; 86644; 86850; 86900; 86901; 86920; 86922; 86965; J7040; P9035; P9040; A4216

== ENCOUNTER 2022-11-21 09:42 | Outpatient (CLI) | payer BC, SELFPAY ==
[2022-11-21 10:07] LABS: Absolute Lymphocyte Count 1.41 X10^3/uL (0.83-4.51); Absolute Neutrophil Count 6.1 X10^3/uL (2.0-7.7); Basophil# 0.03 X10^3/uL; Basophil% 0.4 % (0-1); Eosinophil# 0.03 X10^3/uL; Eosinophils% 0.4 % (0-5); Hematocrit 22.3 % (40-54); Hemoglobin 7.3 g/dL (13.0-16.5); Lymphocyte # 1.41 X10^3/ul (0.83-4.51); Lymphocyte % 17.4 % (19-41); Mean Corp Hgb Conc 32.7 g/dL (32-36); Mean Corpuscular Hgb 29.7 pg (27.0-32.0); Mean Corpuscular Volume 90.7 fL (80-94); Mean Platelet Vol. 9.6 fl (6.2-12.0); Monocyte# 0.43 X10^3/uL; Monocyte% 5.3 % (0-10); NRBC Flagged by Analyzer 0 % (0-5); Neutrophil % 75.3 % (47-70); POSITIVE COUNT YES; POSITIVE MORPHOLOGY YES; Platelet Count 32 K/mm3 (150-450); RBC Distribution Width SD 49.3 fl (35.1-43.9); Red Blood Count 2.46 M/mm3 (4.6-6.2); White Blood Count 8.1 K/mm3 (4.4-11.0)
[2022-11-21 10:16] LABS: Differential Indicated SCAN CRITERIA MET
[2022-11-21 10:30] LABS: AST(SGOT) 14 U/L (15-37); Alanine Aminotransfer ALT/SGPT 26 U/L (16-61); Alkaline Phosphatase 97 U/L (45-117); Bilirubin, Direct 0.07 mg/dL (0.00-0.30); Globulin 3.3 g/dL (2.2-4.2); Protein, Total 6.3 g/dL (6.4-8.2)
[2022-11-22 15:27] LABS: Pathologist Review Reviewed
== END 2022-11-21 09:43 | disposition home or self-care (01) ==
LOC: MEDOUTP 09:44
PROVIDERS: PCP Nurse Practitioner Family; Referring Provider Nurse Practitioner Adult Health; Visit Provider Nurse Practitioner Adult Health
DX: C92.00 Acute myeloblastic leukemia, not having achieved remission (principal)
CPT/HCPCS: 36592; 80076; 85025; 86850; 86900; 86901; 86920; 86922; A4216

== ENCOUNTER 2022-11-22 10:26 | Outpatient (CLI) | payer BC, SELFPAY ==
[2022-11-22 10:38] VITALS: BP 120/83; PULSE 96; RESP 16; TEMP 35.8; O2SAT 100; BMI 20.3
[2022-11-22 11:15] VITALS: BP 103/69; PULSE 82; RESP 16; TEMP 36.2
[2022-11-22 12:21] VITALS: BP 112/78; PULSE 86; RESP 16; TEMP 35.9; O2SAT 98
[2022-11-22 13:01] VITALS: BP 115/86; PULSE 78; RESP 16; TEMP 36.2; O2SAT 100
== END 2022-11-22 10:27 | disposition home or self-care (01) ==
LOC: MEDOUTP 10:26
PROVIDERS: PCP Nurse Practitioner Family; Referring Provider Nurse Practitioner Adult Health; Visit Provider Nurse Practitioner Adult Health
DX: C92.00 Acute myeloblastic leukemia, not having achieved remission (principal)
CPT/HCPCS: 36430; 86850; 86900; 86901; 86920; 86922; J7040; P9040; A4216

== ENCOUNTER 2022-12-02 09:51 | Outpatient (CLI) | payer BC, SELFPAY ==
[2022-12-02 10:20] LABS: Absolute Lymphocyte Count 0.91 X10^3/uL (0.83-4.51); Basophil# 0.02 X10^3/uL; Basophil% 0.5 % (0-1); Hematocrit 29.1 % (40-54); Hemoglobin 9.6 g/dL (13.0-16.5); Lymphocyte # 0.91 X10^3/ul (0.83-4.51); Lymphocyte % 21.8 % (19-41); Mean Corpuscular Hgb 29.9 pg (27.0-32.0); Mean Corpuscular Volume 90.7 fL (80-94); Mean Platelet Vol. 9.7 fl (6.2-12.0); Monocyte% 28.8 % (0-10); NRBC Flagged by Analyzer 0 % (0-5); Neutrophil # 2.01 X10^3/uL (2.7-7.7); Neutrophil % 48.2 % (47-70); Platelet Count 214 K/mm3 (150-450); RBC Distribution Width CV 18.8 % (11.6-14.6); RBC Distribution Width SD 52.6 fl (35.1-43.9); Red Blood Count 3.21 M/mm3 (4.6-6.2); White Blood Count 4.2 K/mm3 (4.4-11.0)
[2022-12-02 10:37] LABS: AST(SGOT) 15 U/L (15-37); Alanine Aminotransfer ALT/SGPT 29 U/L (16-61); Albumin, Serum 3.1 g/dL (3.2-5.0); Alkaline Phosphatase 107 U/L (45-117); Anion Gap 4 (5-15); BUN 9 mg/dL (7-18); BUN/Creat Ratio 8.9 RATIO (10-20); Bilirubin, Direct 0.12 mg/dL (0.00-0.30); Chloride 110 mmol/L (98-107); Creatinine, Serum 1.01 mg/dL (0.70-1.30); EST Glomerular Filtration Rate 82 mL/min (>60); Est Glom Filt Rate - Afr Amer 99 mL/min (>60); Globulin 3.6 g/dL (2.2-4.2); Glucose 110 mg/dL (74-106); Potassium 3.7 mmol/L (3.5-5.1); Protein, Total 6.7 g/dL (6.4-8.2); Sodium Level 141 mmol/L (136-145)
== END 2022-12-02 09:52 | disposition home or self-care (01) ==
PROVIDERS: PCP Nurse Practitioner Family; Referring Provider Nurse Practitioner Adult Health; Visit Provider Nurse Practitioner Adult Health
DX: C92.00 Acute myeloblastic leukemia, not having achieved remission (principal)
CPT/HCPCS: 36592; 80048; 80076; 85025; A4216

== ENCOUNTER 2022-12-05 10:00 | Outpatient (CLI) | payer BC, SELFPAY ==
[2022-12-05 10:24] LABS: Absolute Lymphocyte Count 1.07 X10^3/uL (0.83-4.51); Absolute Neutrophil Count 2.6 X10^3/uL (2.0-7.7); Basophil# 0.03 X10^3/uL; Basophil% 0.6 % (0-1); Eosinophil# 0.01 X10^3/uL; Eosinophils% 0.2 % (0-5); Hematocrit 30.3 % (40-54); Hemoglobin 10.1 g/dL (13.0-16.5); Lymphocyte # 1.07 X10^3/ul (0.83-4.51); Lymphocyte % 22.2 % (19-41); Mean Corp Hgb Conc 33.3 g/dL (32-36); Mean Corpuscular Hgb 30.7 pg (27.0-32.0); Mean Corpuscular Volume 92.1 fL (80-94); Mean Platelet Vol. 9.6 fl (6.2-12.0); Monocyte# 1.12 X10^3/uL; Monocyte% 23.2 % (0-10); NRBC Flagged by Analyzer 0 % (0-5); Neutrophil # 2.56 X10^3/uL (2.7-7.7); POSITIVE MORPHOLOGY YES; Platelet Count 234 K/mm3 (150-450); RBC Distribution Width SD 63.1 fl (35.1-43.9); Red Blood Count 3.29 M/mm3 (4.6-6.2); White Blood Count 4.8 K/mm3 (4.4-11.0)
[2022-12-05 10:25] LABS: Differential Indicated SCAN CRITERIA MET
[2022-12-05 10:40] LABS: AST(SGOT) 15 U/L (15-37); Alanine Aminotransfer ALT/SGPT 29 U/L (16-61); Albumin, Serum 3.2 g/dL (3.2-5.0); Alkaline Phosphatase 98 U/L (45-117); Bilirubin, Direct 0.08 mg/dL (0.00-0.30); Globulin 3.6 g/dL (2.2-4.2); Protein, Total 6.8 g/dL (6.4-8.2)
[2022-12-05 11:08] LABS: Anisocytosis 2+; Differential Comment SCANNED; Polychromasia 1+
[2022-12-05 11:09] LABS: Macrocytosis 1+; Microcytosis 1+
== END 2022-12-05 10:01 | disposition home or self-care (01) ==
LOC: MEDOUTP 10:00
PROVIDERS: PCP Nurse Practitioner Family; Referring Provider Nurse Practitioner Adult Health; Visit Provider Nurse Practitioner Adult Health
DX: C92.00 Acute myeloblastic leukemia, not having achieved remission (principal)
CPT/HCPCS: 36592; 80076; 85025; A4216

== ENCOUNTER 2022-12-12 08:13 | Outpatient (CLI) | payer BC, SELFPAY ==
[2022-12-12 08:37] LABS: Absolute Lymphocyte Count 1.25 X10^3/uL (0.83-4.51); Absolute Neutrophil Count 3.6 X10^3/uL (2.0-7.7); Basophil# 0.04 X10^3/uL; Basophil% 0.7 % (0-1); Eosinophil# 0.01 X10^3/uL; Eosinophils% 0.2 % (0-5); Hematocrit 35.9 % (40-54); Hemoglobin 11.5 g/dL (13.0-16.5); Lymphocyte # 1.25 X10^3/ul (0.83-4.51); Lymphocyte % 20.7 % (19-41); Mean Corpuscular Hgb 30.1 pg (27.0-32.0); Mean Platelet Vol. 9.5 fl (6.2-12.0); Monocyte# 1.13 X10^3/uL; Monocyte% 18.7 % (0-10); NRBC Flagged by Analyzer 0 % (0-5); Neutrophil # 3.56 X10^3/uL (2.7-7.7); Neutrophil % 58.9 % (47-70); POSITIVE MORPHOLOGY YES; Platelet Count 311 K/mm3 (150-450); RBC Distribution Width CV 21.2 % (11.6-14.6); Red Blood Count 3.82 M/mm3 (4.6-6.2)
[2022-12-12 08:39] LABS: Differential Indicated SCAN CRITERIA MET
[2022-12-12 08:55] LABS: AST(SGOT) 12 U/L (15-37); Alanine Aminotransfer ALT/SGPT 29 U/L (16-61); Albumin, Serum 3.4 g/dL (3.2-5.0); Alkaline Phosphatase 90 U/L (45-117); Bilirubin, Direct 0.11 mg/dL (0.00-0.30); Globulin 3.4 g/dL (2.2-4.2); Protein, Total 6.8 g/dL (6.4-8.2)
[2022-12-12 09:07] LABS: Anisocytosis 1+
== END 2022-12-12 08:14 | disposition home or self-care (01) ==
LOC: MEDOUTP 08:13
PROVIDERS: PCP Nurse Practitioner Family; Referring Provider Nurse Practitioner Adult Health; Visit Provider Nurse Practitioner Adult Health
DX: C92.00 Acute myeloblastic leukemia, not having achieved remission (principal)
CPT/HCPCS: 36592; 80076; 85025; A4216